=== PATIENT | female | born 1935 | race Caucasian/White ===

== ENCOUNTER 2018-08-15 16:20 | Inpatient (IN) ==
[2018-08-15] MEDS ORDERED: NS 1,000 ML IV ONE (16:51)
[2018-08-15] MEDS ORDERED: MORPHINE IV ONE (17:04)
--- NOTE | 2018-08-15 17:12 | Diag Imaging Result Doc PS360 ---
EXAM: XRAY PELVIS W/HIP 2-3VW LT INDICATION: PAIN INJURY TECHNIQUE: 2 views COMPARISON: None. FINDINGS: There is a fracture through the left femoral neck with moderate superior displacement of the femoral shaft. There are degenerative changes at both hips. There are degenerative changes involving the lower lumbar spine. No other discrete fracture is appreciated. The surrounding soft tissues are essentially unremarkable. IMPRESSION: Fracture of the left femoral neck as described. Electronically signed by Cody Ross 08/15/2018 5:10 PM
--- NOTE | 2018-08-15 17:13 | Diag Imaging Result Doc PS360 ---
EXAM: CHEST-1 VIEW INDICATION: SOB TECHNIQUE: One view COMPARISON: None. FINDINGS: There is a calcified granuloma at the periphery of the right midlung zone. The lungs are grossly clear. There is no discrete pleural fluid collection or pneumothorax. The cardiomediastinal silhouette and central vasculature are grossly unremarkable. IMPRESSION: No evidence of acute pathology by plain radiograph. Electronically signed by Cody Ross 08/15/2018 5:11 PM
--- NOTE | 2018-08-15 17:57 | PROVIDER DOCUMENTATION ---
This chart was entered by Tiffany Tom Scribe, acting as scribe for Froylan Alicea MD. HPI-Musculoskeletal Pain/Inj - GENERAL Stated Complaint: BROKEN L HIP/FEMUR Time Seen by Provider: 08/15/18 16:36 Source: patient - HX OF PRESENT ILLNESS-MUSKULOSKELTAL Nature of Presenting Problem: Patient is a 82 year old female who presents to the ED via EMS with possible left hip and femur fracture. EMS states patient was found in the floor at the assisted. EMS states patient had an xray done at the assisted which showed a fracture. states patient has Alzheimer's and is at baseline. Quality of Pain: reports: aching Severity in ED: mild Onset/Duration: unsure Timing: still present Any recent injury?: Yes (fall ) Locality of Occurance: Home Similar Symptoms Previously?: No Recently seen or treated by another doctor?: No - FALL INJURY Location of Pain/Injury: reports: lower extremity (left thigh), other (left hip) Pain Radiation: reports: no radiation Reason for Fall: reports: unknown Loss of Consciousness: unsure - HIP/PELVIS PAIN/INJURY Hip Pain Location: reports: hip (L) Pain Radiation: reports: no radiation Context / Method of Injury: reports: fall - LOWER EXTREMITY PAIN/INJURY Lower Extremities Pain: hip: left, thigh: left Context / Method of Injury: reports: fell Review of Systems - Adult - REVIEW OF SYSTEMS - ADULT ROS:: unobtainable per condition Constitutional: reports: no symptoms reported Eyes: reports: no symptoms reported Ears, Nose, Mouth & Throat: reports: no symptoms reported Cardiovascular: reports: no symptoms reported Respiratory: reports: no symptoms reported Gastrointestinal: reports: no symptoms reported Genitourinary: reports: no symptoms reported Musculoskeletal: reports: no symptoms reported Integumentary: reports: no symptoms reported Neurological: reports: no symptoms reported Psychiatric: reports: no symptoms reported Endocrine: reports: no symptoms reported Hematologic/Lymphatic: reports: no symptoms reported Allergic/Immunologic: reports: no symptoms reported All Other Systems: Reviewed and Negative Past History - Adult - PAST MEDICAL HISTORY-ADULT Review of Records: reports: Nursing Assessment Review, Medications Reviewed, Social history reviewed & non-contributory. Major Childhood Illnesses: reports: denies history Cardiovascular: reports: denies history Respiratory: reports: denies history Gastrointestinal: reports: denies history Obstetrical/Gynecological: reports: denies history Genitourinary: reports: denies history Musculoskeletal: reports: denies history Neurological: reports: denies history Endocrine/Immune: reports: denies history Other Conditions: reports: denies history - PRIOR SURGERIES/PROCEDURES Surgical/Procedure History: reports: reviewed, not pertinent - IMMUNIZATION STATUS Childhood Immunizations: See Nurse Assessment Flu Vaccine: See Nurse Assessment - FAMILY HISTORY Family History: reviewed, not pertinent - SOCIAL HISTORY Living Situation: care facility (SNF) Physical Exam-Injury Related - Physical Exam-Injury Related General Appearance: alert, no apparent distress. negative: lethargic Head, Ears, Nose, Mouth & Throat: other (dry mucous membranes). negative: angioedema, hearing deficit Neck: full range of motion, normal inspection. negative: C-spine tenderness Respiratory: chest non-tender, lungs clear, normal breath sounds. negative: rhonchi, wheezing Cardiovascular: normal peripheral pulses, regular rate, rhythm. negative: tachycardia, systolic murmur Abdominal Exam: normal bowel sounds, non tender, soft. negative: guarding, rebound Extremity: tenderness (left thigh and left hip), other (left leg externally rotated). negative: erythema, swelling Integumentary: normal color, warm/dry. negative: ecchymosis, erythema, abrasion, laceration Psych/Mental Status: normal mood/affect. negative: anxious, paranoid Progress - PLAN OF CARE/RESULTS Progress/Plan/Lab Results: Vital Signs - 8 hr 08/15/18 16:50 Temperature 98.4 F Pulse Rate 85 Respiratory Rate 16 Blood Pressure 118/61 O2 Sat by Pulse Oximetry 98 Orders Category Date Time Status Felix Cath Insertion ORDERED Care 08/15/18 16:51 Active Saline Loc NOW Care 08/15/18 16:50 Active NPO Diet 08/15/18 16:51 Active CHEST-1 VIEW [RAD] Stat Exams 08/15/18 16:45 Completed XRAY PELVIS W/HIP 2-3VW LT [RAD] Stat Exams 08/15/18 16:16 Completed CBC WITH ELECTRONIC DIFF [HEME] Stat Lab 08/15/18 17:44 Ordered COMPREHENSIVE METABOLIC PANEL [CHEM] Stat Lab 08/15/18 17:44 Ordered PROTIME WITH INR [COAG] Stat Lab 08/15/18 17:44 Ordered PTT [COAG] Stat Lab 08/15/18 17:44 Ordered UA NIMS W/REFLEX CULT [URINALYSIS] Stat Lab 08/15/18 16:50 Uncollected 0.9% Sodium Chloride Inj [Ns] 1,000 ml Med 08/15/18 16:51 Active IV 100 mls/hr Morphine Med 08/15/18 17:04 Discontinued 2 mg IV NOW ONE EKG [EKG] Stat Ther 08/15/18 16:50 Ordered - EKG 1 Time of EKG reading by physician:: 17:32 EKG Read and Signed by:: Froylan Alicea EKG Interpretation (*Must complete 3 of following elements*): Abnormal Rate: 92 Rhythm: sinus rhythm with premature atrial complexes [place]: normal PA Interval: normal Comments: left anterior fascicular block - XRAY 1 XRAY Study: Chest Impression: See EMR Report ( EXAM: CHEST-1 VIEW INDICATION: SOB TECHNIQUE: One view COMPARISON: None. FINDINGS: There is a calcified granuloma at the periphery of the right midlung zone. The lungs are grossly clear. There is no discrete pleural fluid collection or pneumothorax. The cardiomediastinal silhouette and central vasculature are grossly unremarkable. IMPRESSION: No evidence of acute pathology by plain radiograph. Electronically signed by Cody Ross 08/15/2018 5:11 PM 08/15/18 1711 Interpreting Physician: Cody Ross MD Dictated Date/Time: 08/15/18 171 cc: Froylan Alicea MD; Jonathan Segura) 2 XRAY: Left XRAY Study: Pelvis, Hip Impression: See EMR Report ( EXAM: XRAY PELVIS W/HIP 2-3VW LT INDICATION: PAIN INJURY TECHNIQUE: 2 views COMPARISON: None. FINDINGS: There is a fracture through the left femoral neck with moderate superior displacement of the femoral shaft. There are degenerative changes at both hips. There are degenerative changes involving the lower lumbar spine. No other discrete fracture is appreciated. The surrounding soft tissues are essentially unremarkable. IMPRESSION: Fracture of the left femoral neck as described. Electronically signed by Cody Ross 08/15/2018 5:10 PM 08/15/18 1710 Interpreting Physician: Cody Ross MD Dictated Date/Time: 08/15/18 1709 cc: Froylan Alicea MD; Jonathan Segura) - CONSULTS/PCP/HOSPITALIST Notification #1 *Consult/PCP/Hospitalist*: ANNIA Montes for Hospitalist Time Discussed: 17:28 Reason/Comments: Dr. lAicea consulted with Jyoti about patient. Consult Disposition: other (call back when labs result.) Departure - Departure Date of Disposition Decision: 08/15/18 Time of Disposition Decision: 17:57 DIAGNOSIS: Closed left hip fracture Disposition: ADMITTED INPATIENT 09 Certified Medical Emergency: Emergent Condition: Stable Referrals and Follow-Ups: Jonathan Segura [Primary Care Provider] - - Critical Care Note This patient required my direct & personal management of CC.: No Attestation - Physician/ LEONIE Attestation Patient care was provided by Advanced Practice Provider:: No The physician spent face to face time with patient:: Yes Advanced Practice Provider documentation review:: Supervising physician onsite and consulted in the evaluation and care of this patient. The physician did have a face to face encounter with the patient. This chart was documented by the indicated scribe, (Tiffany Tom Scribe) and accurately reflects the services I performed and decisions made by , Froylan Alicea MD, as attested by the provider's signature.
[2018-08-15 18:00] LABS: BASO# 0.13 X1000 (0.0-0.2); BASO% 0.9 % (0.0-0.8); EOS% 2.2 % (0.0-10.0); HEMATOCRIT 40.7 % (37.0-47.0); HEMOGLOBIN 11.8 g/dL (12.0-16.0); IMM GRAN# 0.11 X1000 (0.0-0.04); IMM GRAN% 0.8 % (0.0-0.5); LYMPH# 1.76 X1000 (1.2-3.4); LYMPH% 12.7 % (20.5-51.1); MCV 96.4 FL (81-99); MONO# 0.54 X1000 (0.11-0.59); MONO% 3.9 % (1.7-9.3); MPV 9.8 FL (7.4-10.4); NEUT# 11.05 X1000 (1.4-6.5); NEUT% 79.5 % (42.2-75.2); PLT 496 X1000 (130-400); RBC 4.22 XMIL (4.2-5.4); RDW 15.6 % (11.5-14.5); WBC 13.89 X1000 (4.8-10.8)
[2018-08-15 18:16] LABS: URINE SOURCE CATH
[2018-08-15 18:18] LABS: INR 0.99; PROTIME 13.9 Seconds (11.0-16.0); PTT 26.5 Seconds (22.3-41.8)
[2018-08-15] MEDS ORDERED: MORPHINE ONE (18:18)
[2018-08-15 18:19] LABS: BILIRUBIN URINE NEGATIVE (NEGATIVE); BLOOD URINE NEGATIVE (NEGATIVE); COLOR YELLOW; GLUCOSE URINE NEGATIVE (NEGATIVE); KETONE URINE NEGATIVE (NEGATIVE); LEUKOCYTES URINE NEGATIVE (NEGATIVE); NITRITE URINE NEGATIVE (NEGATIVE); PROTEIN URINE TRACE mg/dL (NEGATIVE); SP GRAVITY URINE 1.023; TURBIDITY URINE CLEAR (CLEAR); UROBILINOGEN URINE NORMAL (NORMAL)
[2018-08-15 18:27] LABS: UR EPITHELIAL CELLS <10 /HPF (<10); URINE BACTERIA NEGATIVE /HPF; URINE RBC <10 /HPF (<10); URINE WBC <10 /HPF (<10)
[2018-08-15 18:30] LABS: URINE YEAST NONE SEEN
[2018-08-15 19:10] LABS: ALB/GLOB RATIO 1.1; ALBUMIN 3.6 g/dL (3.5-5.0); CREATININE 1.3 mg/dL (0.5-0.9); POTASSIUM 3.9 mmol/L (3.5-5.1); TOTAL BILIRUBIN 0.33 mg/dL (0.20-1.00)
[2018-08-15] MEDS ORDERED: NS 500 ML IV ONE (19:11)
[2018-08-15] MEDS ORDERED: D5W 1,000 ML IV SCH (20:45)
--- NOTE | 2018-08-15 21:53 | Diag Imaging Result Doc PS360 ---
EXAM: CT HEAD/C-SPINE W/O CONTRAST INDICATION: Fall,AMS TECHNIQUE: This exam was performed using automated exposure control, adjustment of mA or kV according to patient size, and/or use of iterative reconstruction technique. COMPARISON: None. FINDINGS: Head: There is moderate to advanced diffuse brain atrophy. There is low-attenuation in the periventricular and subcortical white matter suggesting mild microangiopathy. There is no definite acute infarct given the limited sensitivity of CT versus MRI. There is no discrete intracranial mass, mass effect, or intracranial hemorrhage. The surrounding soft tissues are essentially unremarkable. The calvaria is intact. C-spine: There is advanced multilevel degenerative disc disease and multilevel facet arthropathy. This involves essentially every cervical level. There is loss of disc space height and marginal osteophyte formation at multiple levels. The degenerative changes are causing mild anterolisthesis of C3 on C4 and mild retrolisthesis of C2 on C3. This is causing varying degrees of central canal and neuroforaminal stenosis at multiple levels. Otherwise, is no discrete fracture, acute subluxation, or intrinsic osseous lesion. The surrounding soft tissues are essentially unremarkable. IMPRESSION: 1.Chronic appearing changes as described but no definite acute intracranial pathology. 2.Advanced multilevel degenerative arthropathy throughout the cervical spine but no definite fracture or other definite acute C-spine injury. Electronically signed by Cody Ross 08/15/2018 9:51 PM
--- NOTE | 2018-08-15 21:55 | Diag Imaging Result Doc PS360 ---
EXAM: FOOT COMPLETE RIGHT INDICATION: Fall,bruising and wound to R Heel TECHNIQUE: 3 views COMPARISON: None. FINDINGS: The bones are diffusely osteopenic. There is degenerative arthropathy at multiple IP joints and at the first MTP joint. There is no discrete fracture, dislocation, or significant intrinsic osseous lesion, otherwise. There is atherosclerotic calcification at the ankle. Surrounding soft tissues are grossly unremarkable by plain radiograph, otherwise. IMPRESSION: Chronic appearing changes as described but no definite acute osseous abnormality. Electronically signed by Cody Ross 08/15/2018 9:53 PM
[2018-08-15] MEDS ORDERED: CALMOSEPTINE OINTMENT TOP PRN (23:21)
[2018-08-15] MEDS ORDERED: MORPHINE IV PRN (23:46)
[2018-08-15] MEDS ORDERED: OFIRMEV 1000 MG/ISOTONIC SOLN 1,000 MG/100 ML BOTTLE IV PRN (23:46)
[2018-08-15] MEDS ORDERED: ZOFRAN IV PRN (23:46)
[2018-08-16] MEDS ORDERED: KEFZOL 1 GM/D5W 1 GM/50 ML IVPB IV SCH (00:30)
[2018-08-16] MEDS ORDERED: D5W 1,000 ML IV SCH ×4 (04:00→23:45)
[2018-08-16 06:21] LABS: BASO# 0.11 X1000 (0.0-0.2); EOS# 0.54 X1000 (0.0-0.7); EOS% 4.7 % (0.0-10.0); HEMOGLOBIN 10.5 g/dL (12.0-16.0); IMM GRAN# 0.13 X1000 (0.0-0.04); IMM GRAN% 1.1 % (0.0-0.5); LYMPH# 1.69 X1000 (1.2-3.4); LYMPH% 14.7 % (20.5-51.1); MCH 28.5 PG (27-31); MCHC 29.2 g/dL (33-37); MCV 97.6 FL (81-99); MONO# 0.41 X1000 (0.11-0.59); MONO% 3.6 % (1.7-9.3); MPV 9.9 FL (7.4-10.4); NEUT# 8.65 X1000 (1.4-6.5); NEUT% 74.9 % (42.2-75.2); PLT 400 X1000 (130-400); RBC 3.69 XMIL (4.2-5.4); RDW 15.6 % (11.5-14.5); WBC 11.53 X1000 (4.8-10.8)
[2018-08-16 06:28] LABS: CALCIUM 8.1 mg/dL (8.8-10.2); CREATININE 1.2 mg/dL (0.5-0.9); MAGNESIUM 2.4 mg/dL (1.5-2.7); POTASSIUM 3.7 mmol/L (3.5-5.1); TOTAL BILIRUBIN 0.24 mg/dL (0.20-1.00)
--- NOTE | 2018-08-16 06:48 | HISTORY AND PHYSICAL ---
PRIMARY CARE PROVIDER: Dr. Jonathan Segura in the [facility]. CHIEF COMPLAINT: Fall and left hip pain. HISTORY OF PRESENT ILLNESS: Ms. Adams is an 82-year-old elderly female. She does have a history of dementia and Alzheimer's. She has recently moved here, and is currently living in [facility] with her . Her son Nehemias dAams was also her power of ip attorney. She states that she does not have a physician in this area. This is mainly because she did see Dr. Segura in the [place] area and usually went to [facility]. She has not ever been a patient here at this facility previously. The patient's son and her daughter-in- law report that they do come by frequently and check on her though that her is elderly and has medical problems as well, and is not able to care for her. They do have a patient research and development engineer there that comes in the morning, gets her out of bed, get her cleaned up due to she is incontinent. They do have to provide soft diet, and she does have to have assistance with feeding breakfast, lunch and dinner. They will get her ready for bed, and her is there with her at night when she is by herself, and they will come back in again the next morning. Though evidently some time, approximately a week ago, the patient did have a fall and maybe even multiple falls. At one point, her did finally report to the son that she did fall and/or sit down on the floor and laid on the floor for several hours throughout the night. The patient research and development engineer did find her the next morning, and the family has been checking on her throughout the week though she had been pretty much laying in the bed. She has been not been getting up. Every time they would roll her over to clean her, they noticed that she was calling out in pain, and did tell them that her left hip was hurting. She does have bruising abrasions all over. She also has a pretty big abrasion approximately baseball sized as well as possible a blister/pressure ulcer on her right heel. They report that her usual mentation is that she does not talk much. She does not know her name, where she is, what time it is, and does not normally recognize most people. She is able to recognize her though does not answer any questions at all. Her [id number] does state that she requires a soft diet, and that any time she has any type of hard foods or larger foods, she has difficulty swallowing them. They state that she does handle a soft diet well. They report that normally she does eat and drink well that he has not been as good as it normally has been over the past couple of days to weeks. Due to her left hip pain, they did have someone come in and perform an x-ray at the assisted living facility, and they noted that her left hip was broken. Upon evaluation in the ER, the patient was noted to have a fracture of the left femoral neck on her x-ray pelvis left hip views. Her chest x-ray showed no evidence of acute pathology. Given her fall and altered mental status, we did go ahead and perform a CT head and C-spine which showed chronic appearing changes but no definite acute intracranial pathology. There is also advanced multilevel degenerative arthropathy throughout the cervical spine, but no definite fracture or other definite acute C-spine injury. Right foot x-ray did show chronic appearing changes though no definite acute osseous abnormality. Laboratory results did reveal some mild leukocytosis though there is no known source of infection at this time. Urinalysis did not show any findings for urinary tract infection. Chemistry did reveal that she had severe hypernatremia with a sodium level of 169, acute kidney injury with BUN 42, creatinine 1.3 with a GFR of 39. At this time, the patient was placed inpatient admission for further treatment and evaluation. REVIEW OF SYSTEMS: Unfortunately, review of systems was unable to be performed on the patient due to her current condition and mentation, though please see above HPI for family's reported symptoms. PAST MEDICAL HISTORY: 1. Hypothyroidism. 2. Dementia. 3. Alzheimer's disease. 4. History of breast cancer status post treatment with chemotherapy. 5. Carotid artery disease status post carotid endarterectomy. PAST SURGICAL HISTORY: 1. Breast biopsy. 2. Carotid endarterectomy. SOCIAL HISTORY: The patient reportedly does not have any history of tobacco, alcohol or illicit drug use according to family. She does live at assisted living facility here in [facility]. Her does live with her. Her son is the power of ip attorney. His name is Nehemias Adams. Also, she does have a backup power of ip attorney as well who is [employer]; this is her brother. They were present at bedside during my examination. FAMILY HISTORY: Positive for her mother having a history of heart disease. Her father had a history of Sauk's disease. ALLERGIES: Patient has no known allergies. MEDICATIONS: 1. Aspirin 81 mg p.o. daily. 2. Synthroid 50 mcg p.o. daily. DIAGNOSTIC DATA/LABORATORY [place]: [place] [address], hemoglobin 11.8, hematocrit 40.7, and platelet count is 496,000. PT 13.9, INR 0.99. PTT is 26.5. Sodium 169, potassium 3.9, chloride 129, serum bicarb 25, BUN 42, and creatinine 1.3. GFR 39 and glucose 111. Calcium is 9. Total bilirubin 0.33. AST 58, ALT 83, and alkaline phosphatase 135. Urinalysis was obtained via catheter and was positive for trace protein that was negative for glucose, ketones, blood, nitrites, leukocytes, white blood cells, or bacteria. The EKG showed sinus rhythm with premature atrial complexes at a rate of 92 with a QTc of 477. 1. X-ray pelvis with left hip view showed a fracture of the left femoral neck. 2. Chest x-ray showed no evidence of acute pathology per Radiology. 3. CT head and C-spine without contrast showed chronic appearing changes though no definite acute intracranial pathology. There were advanced multilevel degenerative arthropathy throughout the cervical spine, but no definite fracture or other definite acute C-spine injury. Please see CT report for full findings. 4. Right foot x-ray showed chronic appearing changes but no definite acute osseous abnormality. PHYSICAL EXAMINATION: VITAL SIGNS: Temperature 98.4 degrees, heart rate 81, respirations 18, blood pressure 131/50 with a MAP of 72. Oxygen saturation is 97% on room air. GENERAL: Ms. Adams is an elderly frail ill-appearing female who is resting on the ER stretcher. She was in no acute distress. She was resting with her eyes closed though was arousable with verbal and light tactile stimulation though she would open her eyes and drifts back off to sleep. HEENT: Head is atraumatic, normocephalic. Pupils are equal, round, reactive to light, were 3 mm bilaterally and sluggish. Oral mucosa is dry. Oropharynx is clear. NECK: Supple. Trachea midline. No carotid bruits noted upon auscultation bilaterally. CARDIOVASCULAR: Patient has S1-S2 present. No murmurs, gallops, or rubs appreciated with a regular rate and rhythm. PULMONARY: Patient has symmetrical chest expansion bilaterally. Lung sounds are clear to auscultation in bilateral full jack though it was difficult to auscultate lung sounds. The patient did have a poor expiratory effort. ABDOMEN: Soft. It does not appear to be distended. The patient did not have any facial grimacing or guarding upon palpation. Bowel sounds are present in all 4 quadrants, and were normoactive. EXTREMITIES: No cyanosis or edema noted. Pulse, motor, and sensory are intact in all extremities. Radial pulses and pedal pulses are 2+ bilaterally. There was no ecchymosis or erythema noted to the left hip area. INTEGUMENTARY: The patient's skin is pink, warm, and dry though as previously mentioned, she does have multiple bruises that do appear to be in various stages of healing. She does have an abrasion to her right elbow that does have a scab noted as well. She also has approximately baseball size abrasion/skin tear noted to her medial ankle area as well as what appears to be a possible right heel blister/pressure ulcer. NEUROLOGICAL: Patient is resting with eyes closed. She is arousable with verbal and light tactile stimulation though only opens her eyes, and drifts back off to sleep. At this time, her neurological exam is limited due to her current condition and mentation. ASSESSMENT AND PLAN: 1. Left femoral neck fracture. For this, the patient was placed on strict bedrest. She will be NPO. We have placed a consult for Dr. Aleman with orthopedic surgery. We will await his evaluation and further recommendations for management. 2. Fall. We are unsure how the patient fell, whether from a standing or a sitting position. We understand she did likely lay on the floor for several hours throughout the night. This was approximately 1 week ago. 3. Hyponatremia. This may be secondary to dehydration and fluid volume depletion. The patient did receive a 500 mL normal saline bolus in the ER, though since that time we have switched this to D5W initially at a rate of 100 though we are monitoring her sodium levels closely. We have backed this off to 70 mL/h at this time. We are doing q.4 hours sodium checks. We are also monitoring her neurological status and vital signs q.4 hours as well. She is on continuous cardiac telemetry and pulse oximetry. We will continue to follow very closely. 4. Acute kidney injury. This is likely secondary to fluid volume depletion. We will continue with treatment as mentioned above with intravenous hydration. We will avoid nephrotoxic medications and renally dose medications as necessary. 5. Fluid volume depletion. We will continue with fluid hydration as mentioned above. 6. History of hypothyroidism. The patient is NPO at this time until she is evaluated by Orthopedic Surgery. We have ordered a TSH. If she is unable to take oral medicines, this may have to be given IV if needed. 7. Deep vein thrombosis prophylaxis provided with SCD's, we will place her right lower extremity only. We will defer further DVT prophylaxis to the orthopedic surgical team once they have evaluated her. 8. She is on the surgical floor. We will repeat a CBC, CMP, magnesium, TSH, type and screen in the morning. 9. Further orders and recommendations pending hospital course, diagnostic studies, and physician evaluation. Dictated by ANNIA Mckenzie for Salvador Barillas MD cc: Salvador Barillas MD
[2018-08-16 07:24] LABS: LYMPHS 18 % (21-51); SEGS 82 % (42-75)
--- NOTE | 2018-08-16 07:47 | ORTHOPAEDICS CONSULTATION ---
DATE: 08/16/2018 CLINICAL HISTORY: The patient is a pleasant, 82-year-old female with significant Alzheimer's dementia, who resides at [facility]. The patient lives at the facility with her . Unsure of exactly what occurred, but the patient sustained a fall at her residence. EMS found the patient on the floor at the facility. The patient was transferred to the emergency room, where x-rays were obtained and revealed a left femoral neck fracture. Her history is obtained from her son and the medical records. Orthopedic consultation was requested. HOME MEDICATIONS: Aspirin 81 mg p.o. daily, Synthroid 50 mcg p.o. daily. ALLERGIES: No known drug allergies. PAST MEDICAL HISTORY: Alzheimer's dementia, hypothyroidism, history of breast cancer. PAST SURGICAL HISTORY: Carotid endarterectomy, breast biopsy. PHYSICAL EXAMINATION: The patient is lethargic and confused. She does not appear to have any significant discomfort with palpation with range of motion of the bilateral upper extremities. Her left lower extremity is held in a shortened and externally rotated position. Significant tenderness to palpation. Tenderness to gentle movement. Calf is soft. She has good capillary refill distally. She appears to have dorsiflexion with withdrawing with sensation to the plantar aspect of her foot. Right lower extremity has no palpable deformity. She does have some bruising and discoloration to the heel. No significant swelling. She has no evidence of effusion to bilateral knees. IMAGING: X-ray of the left hip revealed a left displaced femoral neck fracture. X-ray of right foot revealed no evidence of acute fracture or dislocation. IMPRESSION: Left displaced femoral neck fracture. PLAN: Discussed diagnosis and treatment options with the patient's son, and would recommend hemiarthroplasty of the left hip. Risks and benefits of surgery were explained, including the risks of anesthesia, , bleeding, infection, failure to relieve pain, postoperative stiffness, nerve injury, blood clots, possible dislocation, and other imponderables. All questions were answered, and will plan on proceeding with surgery once medically cleared. cc: Harry Aleman MD
--- NOTE | 2018-08-16 07:53 | EKG Report ---
Test Performed on : 08/15/2018 5:32:04 PM Test Reason : cp Blood Pressure : / mmHG Vent. Rate : 092 BPM Atrial Rate : 092 BPM P-R Int : 126 ms QRS Dur : 072 ms QT Int : 386 ms P-R-T Axes : 051 -63 083 degrees QTc Int : 477 ms Sinus rhythm. with premature atrial complexes. Left anterior fascicular block Abnormal ECG No previous ECGs available Unconfirmed Result
--- NOTE | 2018-08-16 08:57 | PROGRESS NOTE ---
DATE: 08/16/2018 PRIMARY CARE PHYSICIAN: Jonathan Segura in the [place] area. SUBJECTIVE: She had a fall with left hip pain. An 82-year-old female, history of Alzheimer's dementia. Recently moved here, currently living in [facility] with her . Her son, Nehemias Adams, also has power of consumer attorney. States that she does not have a physician in this area mainly because she is seen by Dr. Segura in [place] at [facility]. She has never been to this facility before, so admitted with a fracture. PAST MEDICAL HISTORY: 1. Hypothyroidism. 2. Dementia. 3. Alzheimer disease. 4. History of breast cancer, status post treatment with chemotherapy. 5. Carotid artery disease, status post carotid endarterectomy. PAST SURGICAL HISTORY: 1. Breast biopsy. 2. Carotid endarterectomy. OBJECTIVE: General: Today she is awake. She does not really answer questions. She recognizes her name. Otherwise disoriented. Vital signs: Temperature 98.1 degrees, pulse 79, respirations 18, blood pressure 127/68. HEENT: Pupils are equal and round. Lungs: Clear in all lung jack. Cardiovascular: Regular rhythm and rate without murmur or S3. Abdomen: Soft. Skin: Warm and dry. REVIEW OF LABORATORY DATA: White count 43592, hematocrit 36, platelet count 400,000. Sodium 163, potassium 3.7, chloride 128, BUN 12, BUN 39, creatinine 1.2. Urinalysis unremarkable except high osmolality. ASSESSMENT AND PLAN: 1. Left femoral neck fracture. 2. Hyponatremia. At the present time, she is getting dextrose at 85 mL an hour. May increase to 100 mL an hour. 3. Alzheimer's dementia. 4. Acute kidney injury hopefully will improve with volume. 5. Volume depletion. 6. History of hypothyroidism. REVIEW OF ORDERS: Patient getting D5W at 85 mL an hour. We will go up to 125 mL an hour for now, and getting morphine for pain. We will check thyroid, B12 and folate while she is here. Creatinine 1.2. Sodium down from 169 to 163. cc: Javed Hernandez MD
[2018-08-16] MEDS ORDERED: ROBINUL ONE (13:38)
[2018-08-16] MEDS ORDERED: XYLOCAINE-MPF 2% ONE (13:38)
[2018-08-16] MEDS ORDERED: DIPRIVAN 1% ONE (13:38)
[2018-08-16] MEDS ORDERED: ZOFRAN ONE ×2 (13:38→16:06)
[2018-08-16] MEDS ORDERED: QUELICIN (DOSE) ONE (13:46)
[2018-08-16] MEDS ORDERED: KEFZOL 1 GM/D5W 1 GM/50 ML IVPB ONE (15:12)
[2018-08-16] MEDS ORDERED: SODIUM CHLORIDE 0.9% 10 ML ONE (15:26)
[2018-08-16] MEDS ORDERED: DECADRON ONE (16:06)
[2018-08-16] MEDS ORDERED: NEOSPORIN G.U. IRRIGANT ONE (16:25)
[2018-08-16] MEDS ORDERED: OFIRMEV 1000 MG/ISOTONIC SOLN 1,000 MG/100 ML BOTTLE ONE (16:46)
--- NOTE | 2018-08-16 18:31 | Diag Imaging Result Doc PS360 ---
EXAM: HIP 1 VIEW LEFT 08/16/2018 HISTORY: left hip bipolar denia TECHNIQUE: Portable left hip one view COMMENT: There is a bipolar prosthesis. No acute fracture is otherwise present. IMPRESSION: Postsurgical change. Electronically signed by Eugene Zayas 08/16/2018 6:28 PM
[2018-08-16] MEDS ORDERED: MILK OF MAGNESIA PO PRN (19:24)
[2018-08-16] MEDS ORDERED: OXY IR PO PRN (19:24)
[2018-08-16] MEDS ORDERED: ZOFRAN IV PRN (19:24)
[2018-08-16] MEDS ORDERED: MORPHINE IV PRN (19:24)
[2018-08-16] MEDS ORDERED: NS 1,000 ML IV SCH (19:30)
[2018-08-16] MEDS: SANTYL OINT TOP SCH (19:36)
--- NOTE | 2018-08-16 20:01 | OPERATIVE NOTE ---
PROCEDURE DATE: 08/16/2018 PREOPERATIVE DIAGNOSIS: Left displaced femoral neck fracture. POSTOPERATIVE DIAGNOSIS: Left displaced femoral neck fracture. PROCEDURE: Left bipolar hemiarthroplasty with a DePuy Actis size 4 press-fit stem with a 28, +1.5 femoral neck and a 28 x 47 bipolar head. SURGEON: Harry Aleman MD. OUTCOMES ANALYST: ANNIA Ly 2ND APPROVER: Ike Gore RN. ANESTHESIA: General. IV FLUIDS: 300 mL, lactated Ringer's. ESTIMATED BLOOD LOSS: 50 mL. COMPLICATIONS: None. INDICATION: The patient is a pleasant 82-year-old female who was admitted to the hospital yesterday after a fall at her residence. X-rays revealed a displaced femoral neck fracture. The patient has significant Alzheimer's dementia and discussed treatment options with the patient's son. Recommendation to proceed with denia-arthroplasty was offered. Risks and benefits of surgery were explained, including the risks of anesthesia, , bleeding, infection, failure to relieve pain, postop stiffness, nerve injury, blood clots, and other imponderables. All questions answered and they wished to proceed with surgery. DETAILS OF OPERATION: The patient was taken operating room and placed supine on operating table. Once adequate anesthesia was obtained, she is placed in right lateral decubitus position on a barry bag with an axillary roll. Left hip subsequently prepped and draped in usual sterile fashion. A standard lateral incision made with a skin knife. Medial and lateral skin envelopes were developed. The gluteus alex was incised longitudinally in line with the incision. A Charnley retractor was placed. The piriformis tendon was identified and stay sutures were placed. The piriformis tendon along with short external rotators was released. A corkscrew was used to remove the femoral head. A box cutting guide was placed in the intramedullary canal. This was followed by a starting reamer. Sequential broaching was then performed and was countersunk a few mm. A calcar planer was then placed. The trial neck length and head size was performed and patient had excellent stability range of motion. Trial components were removed. The wound was copiously with antibiotic pulsatile lavage. A size 4 Actis press-fit stem was then impacted in position. It had good fit. A 28, +1.5 femoral head with a 28 x 47 bipolar head was then impacted on the stem. The hip was reduced, carried through range of motion with good range of motion and good stability. The wound was copiously once again. A #1 Vicryl was used to repair the arthrotomy followed by a #1 Vicryl. This piriformis tendon wound was copiously once again. The Charnley retractor was then removed. A #1 Vicryl was then used to repair the gluteus alex and fascia holli in a running fashion. A 2-0 Vicryl used to repair the subcutaneous tissue, followed by skin ayden. Adaptic, sterile 4, ABD pad, and tape on the left hip. The patient tolerated the procedure well. She was transferred to the recovery room in stable condition. cc: Harry Aleman MD
[2018-08-16 22:22] LABS: CALCIUM 7.9 mg/dL (8.8-10.2); CREATININE 1.3 mg/dL (0.5-0.9); POTASSIUM 4.3 mmol/L (3.5-5.1)
[2018-08-16] MEDS: TYLENOL PO SCH (22:38)
[2018-08-16] MEDS: COLACE PO SCH (22:38)
[2018-08-16] MEDS: HALDOL IV PRN (22:49)
[2018-08-16] MEDS ORDERED: BLISTEX MEDICATED BERRY LIP BALM TOP ONE (23:40)
[2018-08-17] MEDS: XARELTO PO SCH ×2 (04:33→07:38)
[2018-08-17] MEDS: TYLENOL PO SCH ×3 (04:33→22:22)
[2018-08-17 05:57] LABS: HEMATOCRIT 32.6 % (37.0-47.0); HEMOGLOBIN 9.5 g/dL (12.0-16.0)
[2018-08-17 06:24] LABS: POTASSIUM 4.3 mmol/L (3.5-5.1)
[2018-08-17 06:25] LABS: CALCIUM 8.4 mg/dL (8.8-10.2); CREATININE 1.3 mg/dL (0.5-0.9)
[2018-08-17] MEDS: FERROUS SULFATE PO SCH (08:53)
[2018-08-17] MEDS: SANTYL OINT TOP SCH (08:54)
--- NOTE | 2018-08-17 09:22 | ORTHOPAEDICS PROGRESS NOTE ---
DATE: 08/17/2018 SUBJECTIVE: The patient is a pleasant, 82-year-old female, who is 1 day status post hemiarthroplasty of the left hip. The patient is currently resting comfortably. The left lower extremity dressing is intact. Calf is soft. Her hemoglobin is 9.5, hematocrit is 32.6. IMPRESSION: Postoperative day #1 status post hemiarthroplasty, left hip. PLAN: At this point, will begin physical therapy if she medically stable, and will consult Field Superintendent for discharge planning. The patient has been put in elevated boots to protect her heels. cc: Harry Aleman MD
[2018-08-17] MEDS: PERIDEX MT SCH ×2 (09:55→22:22)
--- NOTE | 2018-08-17 10:02 | PROGRESS NOTE ---
DATE: 08/17/2018 SUBJECTIVE: Ms. Adams is doing well. She was sleeping at the present time. Her son was at the bedside and her [id number]. They would like to pursue going to [facility] and then transition her to a assisted. PHYSICAL EXAMINATION: Today, afebrile. Temperature 98.9 degrees, pulse 65, respirations 15, blood pressure 137/99. Pupils are equal and round. Lungs are clear in all lung jack. Cardiovascular Examination: Regular rhythm and rate without murmur or S3. Abdomen is soft. Skin is warm and dry. Urine output is 1900 mL. ASSESSMENT AND PLAN: 1. She has had a left displaced femoral neck fracture. She had a left bipolar hemiarthroplasty placed per Dr. Aleman and has done well. 2. Hypothyroidism. 3. Alzheimer's dementia. 4. History of breast cancer. 5. History of carotid artery disease. She is status post carotid endarterectomy. 6. Continue physical therapy and rehab. We are going to try and get her to [facility], hopefully the first of the week. Anticipate she will be here this weekend. LABORATORY DATA: Hematocrit 32, hemoglobin 9.5. She has had a little bit of blood loss anemia. We will watch that. REVIEW OF ORDERS: She is on Colace 200 mg at bedtime, OxyIR 5 mg q.3 hours, Tylenol 1000 mg q.8 hours, getting normal saline at 75 mL an hour, and she gets ferrous sulfate 325 mg with breakfast, and started on Xarelto 10 mg p.o. daily. cc: Javed Hernandez MD
--- NOTE | 2018-08-17 20:26 | GENERAL SURGERY CONSULTATION ---
DATE: 08/17/2018 HISTORY OF PRESENT ILLNESS: This is an 82-year-old lady who has dementia. She apparently fell and broke her femoral neck. She is noted to have a superficial heel ulceration. I have been asked to see her about that. PAST MEDICAL HISTORY: Her past history is well documented. She has hypothyroidism, dementia, history of breast cancer, and history of carotid endarterectomy. SOCIAL HISTORY: She does not use tobacco or alcohol. She lives at [facility]. She is . Her son has power of coin machine collector supervisor. FAMILY HISTORY: Family history is pertinent for heart disease. MEDICATIONS: Medications include aspirin and Synthroid. ALLERGIES: She has no known drug allergies. REVIEW OF SYSTEMS: Review of systems is not obtainable. PHYSICAL EXAMINATION: Vital Signs: She is afebrile, heart rate 86, blood pressure 133/107. lungs: She has breath sounds. cardiac: She has a regular rhythm. Abdomen: Soft. Extremities: Extremities are not swollen. Her right heel has a very superficial blister. It is actually unstageable, but certainly appears superficial. No heel ulcer on the left. She has palpable pedal pulses. ASSESSMENT: Superficial ulceration of right heel that should heal fine after the skin dries up. She should heal underneath the skin with no problem. I do not think any intervention is indicated except to offload her heel as always. cc: Harry Glass MD
[2018-08-17] MEDS: COLACE PO SCH (22:22)
[2018-08-18] MEDS: XARELTO PO SCH (05:20)
[2018-08-18] MEDS: TYLENOL PO SCH ×3 (05:20→20:48)
[2018-08-18 06:53] LABS: HEMATOCRIT 28.7 % (37.0-47.0); HEMOGLOBIN 8.4 g/dL (12.0-16.0)
--- NOTE | 2018-08-18 07:49 | ORTHOPAEDICS PROGRESS NOTE ---
DATE: 08/18/2018 SUBJECTIVE: The patient is a pleasant 82-year-old female with underlying Alzheimer's dementia who is 2 days status post hemiarthroplasty left hip. She is currently sleeping and resting. OBJECTIVE: On physical exam, the patient's dressing is intact. Calf is soft. LABORATORIES: Her laboratories are pending. IMPRESSION: Postoperative day #2 status post left hemiarthroplasty left hip. PLAN: At this point, we will continue mobilization as tolerated with weightbearing as tolerated left lower extremity. We will maintain the patient in her boots to offload her heel. Auction Assistant has been consulted for discharge planning. cc: Harry Aleman MD
[2018-08-18] MEDS: FERROUS SULFATE PO SCH (08:05)
[2018-08-18] MEDS: PERIDEX MT SCH ×2 (08:05→20:48)
--- NOTE | 2018-08-18 09:12 | PROGRESS NOTE ---
DATE: 08/18/2018 SUBJECTIVE: Ms. Adams is easy to arouse. She is sleepy this morning, but she is breathing comfortably. She remains afebrile. Her son has been able to get a couple bites of food down for breakfast. OBJECTIVE: Vital Signs: Temperature 98.6 degrees, pulse 73, respirations 20, blood pressure 111/42. HEENT: Pupils are equal round. Lungs: Clear in all lung jack. Cardiovascular: Regular rhythm and rate without murmur or S3. Abdomen: Soft. Skin: Warm and dry. Urine output was 600 to 700 mL. ASSESSMENT AND PLAN: 1. Superficial ulceration on the right heel that should heal fine after the skin dries up. She should heal underneath the skin with no problem. Dr. Glass has evaluated, appreciate his help. 2. This is postoperative day left hip hemiarthroplasty, left hip, seems to be doing well. 3. Dementia, advanced, but doing well. 4. History of breast cancer. 5. History of carotid artery disease. Continue present physical therapy. REVIEW OF ORDERS: I do not see any change at this point. She is on iron and getting oxycodone for pain. She is on Colace 200 mg at bedtime. We are looking for rehab at [place] and Legal Summer Intern involved. Her blood count, hematocrit 28, hemoglobin 8.4, so she does have mild blood loss anemia following surgery. cc: Javed Hernandez MD
[2018-08-18] MEDS: SANTYL OINT TOP SCH (10:05)
[2018-08-18] MEDS: NS 1,000 ML IV SCH ×2 (15:10→16:58)
[2018-08-18] MEDS ORDERED: NS 400 ML IV ONE (15:22)
[2018-08-18] MEDS: HALDOL IV PRN (20:47)
[2018-08-18] MEDS: COLACE PO SCH (20:48)
[2018-08-19 06:00] LABS: HEMATOCRIT 27.9 % (37.0-47.0); HEMOGLOBIN 8.3 g/dL (12.0-16.0)
[2018-08-19] MEDS: XARELTO PO SCH (07:10)
[2018-08-19] MEDS: TYLENOL PO SCH ×3 (07:10→21:11)
[2018-08-19] MEDS: NS 1,000 ML IV SCH ×2 (07:10→21:09)
--- NOTE | 2018-08-19 08:00 | ORTHOPAEDICS PROGRESS NOTE ---
DATE: 08/19/2018 SUBJECTIVE: Ms. Adams is postop day 3 from left hip hemiarthroplasty. Her family member was in the room this morning. He says that she has been doing fairly well. We are still battling dementia but from the hip pain standpoint she is moving around a lot better and mobilizing. OBJECTIVE: Left lower extremity exam, dressing is clean, dry, and intact. Leg lengths look good. She does not really follow commands. ASSESSMENT: Status post left hip hemiarthroplasty. PLAN: I think Ms. Adams is doing well from an orthopedic standpoint. From a Medicine standpoint, they are still working everything up and getting her optimized. She can mobilize as needed and she is weight bear as tolerated left lower extremity. We will continue to follow. cc: Jose Berger MD
--- NOTE | 2018-08-19 08:05 | PROGRESS NOTE ---
DATE: 08/19/2018 SUBJECTIVE: Ms Adams had a pretty uneventful night. She did get agitated and I think they did get her some Haldol and that seemed to help and she went to sleep. She is comfortable this morning. OBJECTIVE: Vital signs: Temperature 99.4 degrees, pulse 77, respirations 16, blood pressure 109/45. HEENT: Pupils are equal and round. Lungs: Clear in all lung jack anterolateral. Cardiovascular: Regular rate without murmur or S3. Abdomen: Soft. Skin: Warm and dry. Urine output was about 1500 mL. ASSESSMENT AND PLAN: 1. Superficial ulceration of the right heel, which looks like it is going to heal up. Dr. Glass has evaluated. 2. I think this is the 3rd postoperative day, left hip hemiarthroplasty. Doing well. 3. Dementia. Aware. 4. History of breast cancer. 5. History of carotid disease. Wait to see if we can get her to [facility] on Tuesday. She also has some [facility] papers, see if we can help her with eligibility. cc: Javed Hernandez MD
[2018-08-19] MEDS: FERROUS SULFATE PO SCH (10:29)
[2018-08-19] MEDS: PERIDEX MT SCH ×2 (10:30→21:12)
[2018-08-19] MEDS: SANTYL OINT TOP SCH (14:46)
[2018-08-19] MEDS: HALDOL IV PRN (21:07)
[2018-08-19] MEDS: COLACE PO SCH (21:12)
[2018-08-20] MEDS: HALDOL IV PRN (05:10)
[2018-08-20] MEDS: TYLENOL PO SCH ×3 (05:10→22:18)
[2018-08-20] MEDS: XARELTO PO SCH (05:10)
--- NOTE | 2018-08-20 08:29 | PROGRESS NOTE ---
DATE: 08/20/2018 SUBJECTIVE: Ms. Adams had a pretty uneventful night. She did get some Haldol. She is comfortable, sleeping at the present time, breathing comfortably. OBJECTIVE: Vital Signs: Temperature 97.5 degrees, pulse 77, respirations 24, and blood pressure 131/63. HEENT: Pupils are equal and round. Lungs: Clear in all lung jack. Cardiovascular: Regular rhythm and rate without murmur or S3. Abdomen: Soft. Skin: Warm and dry. ASSESSMENT AND PLAN: 1. Superficial ulceration of the right heel looks like it is going to heal up well. 2. Fourth postoperative day, left hip hemiarthroplasty, doing very well. Look for rehab tomorrow. I think they would like to go to [facility]. 3. Dementia. Aware. 4. Breast cancer. 5. History of carotid disease. Aware. Hopefully to rehab tomorrow or Tuesday. REVIEW OF ORDERS: I do not see any change. Getting normal saline at 75 mL an hour, Xarelto 10 mg a day. She is on oxycodone IR for pain and ferrous sulfate 325 mg daily. cc: Javed Hernandez MD
[2018-08-20] MEDS: NS 1,000 ML IV SCH ×2 (10:44→23:36)
[2018-08-20] MEDS: FERROUS SULFATE PO SCH (16:01)
[2018-08-20] MEDS: PERIDEX MT SCH ×2 (16:01→22:18)
[2018-08-20] MEDS: SANTYL OINT TOP SCH (16:17)
[2018-08-20] MEDS: COLACE PO SCH (22:18)
[2018-08-21] MEDS: TYLENOL PO SCH ×3 (05:49→23:55)
[2018-08-21] MEDS: XARELTO PO SCH (05:49)
[2018-08-21] MEDS: FERROUS SULFATE PO SCH (12:23)
[2018-08-21] MEDS: NS 1,000 ML IV SCH (12:23)
[2018-08-21] MEDS: PERIDEX MT SCH (12:23)
[2018-08-21] MEDS: SANTYL OINT TOP SCH (12:24)
--- NOTE | 2018-08-21 16:14 | PROGRESS NOTE ---
DATE: 08/21/2018 SUBJECTIVE: Ms Adams is doing well. She had a good night and comfortable and eating fairly well. OBJECTIVE: Temperature 98.1 degrees, pulse 70, respirations 12, blood pressure 146/44. Pupils are equal and round. Lungs are clear in all lung jack. Cardiovascular: Regular rhythm and rate without murmur or S3. Urine Output: 2600 mL. ASSESSMENT AND PLAN: 1. This is 5th postoperative day of left hip hemiarthroplasty for fractured hip. Doing very well. Plan is to go to [facility] when bed is open. Doing very well, very cooperative. 2. Dementia, which has been present, chronic. She has done very well, very cooperative. 3. Superficial ulceration in the right heel, which appears to be healing. 4. History of breast cancer. 5. History of carotid artery disease. 6. Review of her orders look good. I did get some paperwork we VA benefits. She is getting normal saline at 75 mL an hour. She is on iron 325 mg a day, getting oxycodone IR 5 mg q.3 h. p.r.n. pain, Colace 200 mg at bedtime, and Xarelto 10 mg p.o. q.24 h. 7. She does have an acute blood loss anemia, but it is stable. Hematocrit 27, hemoglobin 8.3. cc: Javed Hernandez MD MTDD
[2018-08-21] MEDS: COLACE PO SCH (23:56)
[2018-08-22] MEDS: NS 1,000 ML IV SCH (00:11)
[2018-08-22] MEDS: TYLENOL PO SCH ×4 (05:26→21:40)
[2018-08-22] MEDS: PERIDEX MT SCH ×3 (05:26→21:39)
[2018-08-22 06:13] LABS: BASO# 0.04 X1000 (0.0-0.2); BASO% 0.4 % (0.0-0.8); EOS# 0.32 X1000 (0.0-0.7); EOS% 3.4 % (0.0-10.0); HEMATOCRIT 27.9 % (37.0-47.0); HEMOGLOBIN 8.5 g/dL (12.0-16.0); IMM GRAN# 0.17 X1000 (0.0-0.04); IMM GRAN% 1.8 % (0.0-0.5); LYMPH# 1.61 X1000 (1.2-3.4); LYMPH% 17.3 % (20.5-51.1); MCH 27.5 PG (27-31); MCHC 30.5 g/dL (33-37); MCV 90.3 FL (81-99); MONO# 0.42 X1000 (0.11-0.59); MONO% 4.5 % (1.7-9.3); MPV 9.7 FL (7.4-10.4); NEUT# 6.73 X1000 (1.4-6.5); NEUT% 72.6 % (42.2-75.2); PLT 510 X1000 (130-400); RBC 3.09 XMIL (4.2-5.4); WBC 9.29 X1000 (4.8-10.8)
[2018-08-22 06:18] LABS: AGAP 10; BUN 16 mg/dL (8-22); CALCIUM 7.9 mg/dL (8.8-10.2); CHLORIDE 113 mmol/L (98-107); COSMO 290; CREATININE 0.8 mg/dL (0.5-0.9); ESTIMATED GFR > 60; GLUCOSE 109 mg/dL (70-104); POTASSIUM 3.4 mmol/L (3.5-5.1); SODIUM 145 mmol/L (136-145); TCO2 22 mmol/L (25-35)
[2018-08-22] MEDS: XARELTO PO SCH (06:23)
[2018-08-22] MEDS: FERROUS SULFATE PO SCH (08:39)
[2018-08-22] MEDS: SANTYL OINT TOP SCH (08:40)
--- NOTE | 2018-08-22 18:37 | PROGRESS NOTE ---
DATE: 08/22/2018 SUBJECTIVE: The patient is resting comfortably in bed. No acute events noted overnight. The patient is eating well and having regular bowel movements. OBJECTIVE: Vital Signs: Temperature 98.2 degrees, blood pressure 146/79, heart rate 75, respirations 22, O2 saturation is 100% on room air. General: This is a chronically ill-appearing female lying in bed, in no acute distress. Heart: S1, S2 normal. Regular rate and rhythm. Lungs: Clear to auscultation bilaterally. Abdomen: Positive bowel sounds. Soft, nontender, nondistended. Extremities: The right foot is wrapped in a clean, dry dressing. Neurologic: The patient is awake but demented. LABS: Sodium 145, potassium 3.4, chloride 113, CO2 22, BUN 16, creatinine 0.8, glucose 109. White blood cell count 9.2, hemoglobin 8.5, hematocrit 27, platelets 510,000. ASSESSMENT AND PLAN: 1. Status post left bipolar hemiarthroplasty. Stable. Continue with physical therapy. 2. Anemia. Stable. 3. Hypokalemia. Will replace the patient's potassium. 4. Dementia. Aware. 5. Deep vein thrombosis prophylaxis. The patient is on Xarelto. 6. Disposition. The patient will be discharged to rehab once a bed is available. cc: Caryl Patino MD
[2018-08-22] MEDS: COLACE PO SCH (21:40)
[2018-08-23 05:54] LABS: BASO% 1.1 % (0.0-0.8); EOS# 0.29 X1000 (0.0-0.7); EOS% 3.3 % (0.0-10.0); HEMATOCRIT 26.6 % (37.0-47.0); HEMOGLOBIN 8.3 g/dL (12.0-16.0); IMM GRAN# 0.22 X1000 (0.0-0.04); IMM GRAN% 2.5 % (0.0-0.5); LYMPH% 16.9 % (20.5-51.1); MCH 29.1 PG (27-31); MCHC 31.2 g/dL (33-37); MCV 93.3 FL (81-99); MONO# 0.46 X1000 (0.11-0.59); MONO% 5.2 % (1.7-9.3); MPV 9.7 FL (7.4-10.4); NEUT# 6.31 X1000 (1.4-6.5); PLT 415 X1000 (130-400); RBC 2.85 XMIL (4.2-5.4); RDW 15.4 % (11.5-14.5); WBC 8.88 X1000 (4.8-10.8)
[2018-08-23 06:09] LABS: AGAP 11; BUN 14 mg/dL (8-22); CALCIUM 7.7 mg/dL (8.8-10.2); CHLORIDE 110 mmol/L (98-107); COSMO 284; CREATININE 0.7 mg/dL (0.5-0.9); ESTIMATED GFR > 60; GLUCOSE 107 mg/dL (70-104); POTASSIUM 3.2 mmol/L (3.5-5.1); SODIUM 142 mmol/L (136-145); TCO2 21 mmol/L (25-35)
[2018-08-23] MEDS: TYLENOL PO SCH (06:24)
[2018-08-23] MEDS: XARELTO PO SCH (06:24)
[2018-08-23] MEDS ORDERED: KLOR-CON PO ONE (06:24)
[2018-08-23] MEDS: COLACE PO SCH (07:30)
[2018-08-23] MEDS ORDERED: MAGNESIUM SULFATE 2 GM/S.W.I. 2 GM/50 ML IVPB IV ONE (07:45)
[2018-08-23] MEDS: FERROUS SULFATE PO SCH (10:53)
[2018-08-23] MEDS: PERIDEX MT SCH (11:05)
[2018-08-23 11:26] VITALS: BP 160/79
--- NOTE | 2018-08-23 12:51 | DISCHARGE SUMMARY ---
ADMISSION DATE: 08/15/2018 DISCHARGE DATE: 08/23/2018 FINAL DISCHARGE DIAGNOSES: 1. Status post left bipolar hemiarthroplasty. 2. Anemia. 3. Hypokalemia. 4. Dementia. CONSULTATIONS: Orthopedic consultation with Dr. Aleman. PROCEDURES: Left bipolar hemiarthroplasty performed on 08/16/2018. HOSPITAL COURSE: Ms. Adams is an 82-year-old female with a history of Alzheimer dementia, who presented to the ER after suffering a fall. An x-ray done in the ER revealed a displaced femoral neck fracture involving the left. The patient was admitted to the Hospitalist Service and Orthopedic Surgery was consulted. The patient was taken to the OR on 08/16/2018 and underwent a left bipolar hemiarthroplasty. The patient did well postoperatively and physical therapy was consulted to mobilize the patient. The patient's family elected to have the patient sent to an inpatient rehabilitation center to recover, and [employer] was consulted to assist with that. The patient continued to improve clinically and was ultimately cleared for discharge on 08/23/2018. DISCHARGE MEDICATIONS: 1. Colace 200 mg oral at bedtime. 2. [place] 5/325 one tab oral every 6 hours p.r.n. 3. Xarelto 10 mg oral every 24 hours x30 days. 4. Ferrous Sulfate 325 mg oral daily. 5. Aspirin 81 mg p.o. daily. 6. Synthroid 50 mcg oral daily. DISCHARGE DIET: Heart healthy diet. ACTIVITY: As tolerated. FOLLOWUP INSTRUCTIONS: The patient will need to follow up with Dr. Aleman in 2 weeks. cc: Caryl Patino MD
== END 2018-08-23 17:18 | DRG 469 ==
LOC: SUPCPDRO → ED 16:20 → 4N 21:45 → SUATTDRO 21:45 → 4N 08-16 17:14
PROVIDERS: ATTEND Internal Medicine
CPT/HCPCS: 51702; 70450; 71010; 71045; 72125; 73500; 73501; 73502; 73630; 80048; 80053; 81001; 83735; 83930; 83935; 84134; 84295; 84300; 84443; 85014; 85018; 85025; 85610; 85730; 86850; 86900; 86901; 88305; 88311; 93005; 94761; 94762; 94799; 96361; 96365; 96366; 96375; 97110; 97162; 97530; 99285; A9270; J0131; J0330; J0690; J1100; J1630; J2270; J2405; J3475; J7030; J7070